=== PATIENT | male | born 1985 | race Caucasian/White ===

== ENCOUNTER 2019-10-08 09:46 | Outpatient (CLI) | payer OTHER ==
[2019-10-08 12:53] VITALS: BP 141/102
--- NOTE | 2019-10-08 12:53 | SLEEP CARE CONSULTATION ---
Information from patient questionnaire entered by Elida Staples. I have reviewed and concur with the information entered by Elida Staples. This document represents the service I personally performed and the decisions made by me, Sami Farrell MD, [facility]. History of Present Illness Reason for Visit: New patient Chief Complaint: reports: Unrefreshed sleep, Snoring, Observed pauses in breathing, Frequent awakenings at night Duration of Symptoms: 3 years Usual bedtime: 2200 Snores at night: Yes Observed to quit breathing while asleep: Yes Sleeps alone due to snoring: No Number of times waking at night: 3-4 Reasons for waking at night: reports: Snoring, Gasping for air, Bathroom Toss, Turn, or Twitch while sleeping: Yes Recalls having dreams: No Usually gets out of bed at: 0600 Feels refreshed in the morning: No Morning headache: No Sleepy or fatigued during the day: Yes Ever fallen asleep while driving: No Takes day naps: No Dreams during day naps: No Prior sleep studies: No Additional HPI information: I had the pleasure of seeing Mr. Sheth today regarding the possibility of him having a sleep disorder. As you know, he is a 34 year old gentleman who complains of loud snore, observed apneas, frequent awakenings, and excessive daytime sleepiness for at least 3 years. The patient tells me that he normally goes to bed around 10 pm, and it takes him approximately just a few minutes to fall asleep. He has been told that he snores loudly and irregularly at night. He has also been observed to stop breathing in his sleep. His can still sleep in the same bed. He can recall waking up on the average of 3 - 4 times du ring the night. Most of the time he wakes up because of his own snoring, choking, and having to gasp for air. There is a lot of tossing and turning in his sleep. No somniloquy (sleep talking) or somnambulism (sleep walking). Generally there is no recollection of dreams. In the morning he usually gets up out of the bed around 0600 a.m. not feeling refreshed nor rested. He usually does not have a morning headache. During the day he complains of feeling sleepy and fatigued. His score on [place] Sleepiness Scale is 16 out of 24. He has never fallen asleep while driving nor has had any accident due to sleepiness. He usually does not take naps during the day. Upon falling asleep during the day he denies having vivid dreams. He has had sleep paralysis, but never experienced cataplexy or symptoms of restless leg syndrome. He denies having impaired concentration during the day. Subjective Initial [place] Sleepiness Scale score: 16 Social History The patient's occupation is active . Patient is and lives in [place]. Have you smoked in the past 12 months: No Cigarettes per day (20/pack): 20 Years of smokin Quit date: 2009 Smoking Pack Years: 5.0 Alcohol use: No Caffeine use: Yes Caffeine amount and frequency: 1 cup coffee/day Allergies and Home Medications Drug allergies reviewed: Yes Home medication list reviewed: Yes Allergy and home medication list: Meds: vitamins Allergies: bee stings Review of Systems Cardiovascular: denies: high blood pressure, palpitations, chest pain, irregular heart rate or pulse, leg or foot swelling, have to sleep sitting up, other Respiratory: denies: shortness of breath, wheeze, sputum production, chronic cough, other Gastrointestinal: denies: heartburn, difficulty swallowing, nausea, vomitting, diarrhea, abdominal pain, other Urinary: denies: incontinence, frequency, urgency, impotence, other Neurological: denies: headaches, seizure, head trauma, disorientation, speech dysfunction, gait or balance problems, fainting or unconsciousness, other Psychiatric: denies: Attention Deficit Hyperactivity, anxiety, depression, mood disorder, claustrophobia, other Ear/Nose/Throat: denies: nasal congestion, sinus problems, nose bleeds, dry mouth/throat, hoarseness, injury to nose, tonsillectomy, wisdom teeth removed, other Endocrine: denies: thyroid disease, history of goiter, sluggishness, too hot or cold, excessive thirst, increased appetite, increased urination, unexplained weakness, other Musculoskeletal: denies: joint pain, neck pain, back pain, joint swelling, muscle pain or cramping, mobility problems, other Immunologic: denies: sneezing, rash, itching, allergies to food or environment, other Physical Exam Vital signs obtained and entered by: Dr. Farrell Blood Pressure: 141/102 Cuff size: regular Heart Rate: 80 O2 Saturation: 98 Height: 5 ft 10 in Weight: 205 lb Body Mass Index: 29.4 BMI Classification: Overweight Neck circumference: 17 Mood/affect: normal HEENT: No craniofacial malformation Nostrils: patent to airflow Turbinates: normal Septum: midline Mouth and throat: narrow oropharynx Soft palate: long Hard palate: normal Uvula: normal Uvula visualization: 50% Mallampati Class II Tongue: normal in size Tonsils: small Chin and jaw: normal size and position Neck: normal w/o lymphadenopathy or thyromegaly Heart: regular rate and rhythm Lungs: clear bilaterally Abdomen: soft, non-tender Extremities: no edema or clubbing Neurologic: intact, no focal deficits Impression and Plan IMPRESSION: 1. Obstructive Sleep Apnea-Hypopnea Syndrome, as suggested by history of loud and irregular snoring, observed cessation of breath while asleep, frequent awakenings during the night, unrefreshed sleep, and daytime hypersomnolence. Narrow oropharynx and obesity are common predisposing factors for obstructive sleep apnea-hypopnea syndrome. Untreated obstructive sleep apnea can also cause hypertension. Pathophysiology of sleep-disordered breathing was discussed. I recommend proceeding to polysomnography to confirm the diagnosis and to assess severity. If he has significant sleep disordered breathing, a manual CPAP titration study will also be performed to find the optimal treatment pressure. I informed the patient of what the sleep studies involve and after some discussion, he agreed to proceed. Plan: 1. Schedule polysomnography + manual CPAP titration study 2. Avoid long distance driving or when feeling sleepy. 3. Avoid alcohol, sedative and muscle relaxant around bedtime. 4. Attempt to lose weight. 5. Return in 1 to 2 weeks after the study to discuss results and initiate therapy. I spent 100% of this 20 minute visit face to face with the patient with greater than 50% of this was spent time counseling the patient and coordination of care.
== END 2019-10-08 09:47 | disposition home or self-care (01) ==
LOC: SC 09:46
PROVIDERS: ATTEND Internal Medicine Pulmonary Disease
DX: R06.83 Snoring (principal); R06.81 Apnea, not elsewhere classified; G47.8 Other sleep disorders; G47.10 Hypersomnia, unspecified
CPT/HCPCS: 99203; 99212

== ENCOUNTER 2019-10-28 19:32 | Outpatient (CLI) | payer OTHER | END 2019-10-28 19:33 | disposition home or self-care (01) | LOC: SC 19:32 | PROVIDERS: ATTEND Internal Medicine Pulmonary Disease | DX: G47.33 Obstructive sleep apnea (adult) (pediatric) (principal); E66.9 Obesity, unspecified; Z68.29 Body mass index [BMI] 29.0-29.9, adult | CPT/HCPCS: 95810 ==

== ENCOUNTER 2019-11-27 08:14 | Outpatient (CLI) | payer OTHER ==
[2019-11-27 09:05] VITALS: BP 132/82
--- NOTE | 2019-11-27 09:05 | SLEEP CARE CONSULTATION ---
Information from patient questionnaire entered by Debbie Bermudez. I have reviewed and concur with the information entered by Debbie Bermudez. This document represents the service I personally performed and the decisions made by me, Jo Salguero, RN, MSN, [employer]. History of Present Illness Initial [place] Sleepiness Scale score: 16 Current [place] Sleepiness Scale score: 15 Additional HPI information: TERESITA YOUSSEF returns for follow up and results of the recently performed polysomnography. I explained the pathophysiology behind obstructive sleep apnea. We then spent quite a bit of time discussing different treatment options. For mild obstructive sleep apnea, surgery and oral appliance are alternatives to nasal CPAP therapy but in moderate or severe cases, nasal CPAP is the most effective and reliable treatment. I reviewed the impact of weight changes on sleep apnea and strongly recommended losing weight. After some discussion, the patient opted to go with the nasal CPAP therapy. I discussed the option of initiating CPAP in a manual titration study with compounding pharmacy technician versus trying autoCPAP at home. He chose the manual titration study to find optimal treatment pressure. I explained how CPAP machine works with sample devices [employer] Dreamstation and [employer] [id number] and what to expect when using the machine. He also asked about battery options, I discussed how his PCM can order this when he is set up from the [employer]. When it is used, the humidifier must be off as it draws too much power. Patient counseled not drink alcohol less than 4 hours before bedtime as it can increase snoring and apnea. Patient does not drink alcohol. Patient was cautioned about risks of drowsy driving until sleepiness symptoms resolve. Patient denies drowsy driving. [facility] patient education on snoring and sleep apnea given and reviewed. Sleep Study - Results Polysomnography/Home Sleep Study results: The quality of the study is good. The patient had normal sleep efficiency. Except for mild sleep fragmentation, the sleep architecture was normal as well. Respiratory monitoring showed mild obstructive sleep apnea-hypopnea (AHI = 6.6) associated with frequent arousals, oxyhemoglobin desaturation and moderate hypoxia (aylin oxygen saturation of 77%). Baseline oxygen saturation was normal. The respiratory events occurred mainly during supine sleep (supine AHI = 9.5; non-supine = 5.15). Snore was loud in intensity. There was no significant periodic leg movement of sleep. Cardiac rhythm was normal sinus rhythm without significant arrhythmia. No abnormal behavior (parasomnia) observed during the night. Allergies and Home Medications Known drug allergies: No (bee stings ) Home medication list reviewed: No (none taken) Review of Systems Review of systems same as previous: Yes Physical Exam Blood Pressure: 132/82 Cuff size: long Heart Rate: 94 O2 Saturation: 98 Height: 5 ft 10 in Weight: 216 lb 6.4 oz Body Mass Index: 31.0 BMI Classification: Obesity Class 1 Impression and Plan 1. Obstructive sleep Apnea-Hypopnea Syndrome, mild, with lowest oxygen saturation of 77%. . Obviously this is the cause of the patients symptoms of unrefreshed sleep, and excessive daytime sleepiness. Positive pressure therapy could benefit his intermittent elevated blood pressure. As mentioned above, the patient will be scheduled for a manual titration study will be completed if unable to find optimal treatment pressure. Because the apnea is more severe supine, I instructed to avoid sleeping supine using pillow positioning until able to start CPAP use. * Schedule manual titration study * Attempt to lose weight. * Avoid alcohol consumption near bedtime. * Avoid supine sleep until using CPAP. * The patient is again cautioned about driving until sleepiness completely resolves. * Return one month after CPAP obtained. I will assess response to therapy and compliance at that time. Time Spent with Patient (minutes): 35 I spent 100% of this visit face to face with the patient with greater than 50% of this was spent time counseling the patient and coordination of care.
== END 2019-11-27 08:15 | disposition home or self-care (01) ==
LOC: SC 08:14
PROVIDERS: ATTEND Nurse Practitioner Family
DX: G47.33 Obstructive sleep apnea (adult) (pediatric) (principal); E66.9 Obesity, unspecified; Z68.31 Body mass index [BMI] 31.0-31.9, adult
CPT/HCPCS: 99212; 99214

== ENCOUNTER 2019-12-19 20:21 | Outpatient (CLI) | payer OTHER | END 2019-12-19 20:22 | disposition home or self-care (01) | LOC: SC 20:21 | PROVIDERS: ATTEND Internal Medicine Pulmonary Disease | DX: G47.33 Obstructive sleep apnea (adult) (pediatric) (principal) | CPT/HCPCS: 95811 ==

== ENCOUNTER 2020-06-17 16:03 | Outpatient (CLI) | payer OTHER | END 2020-06-17 16:04 | disposition home or self-care (01) | LOC: SC 16:03 | PROVIDERS: ATTEND Nurse Practitioner Family | DX: Z53.9 Procedure and treatment not carried out, unspecified reason (principal) ==

== ENCOUNTER 2020-06-18 10:15 | Outpatient (CLI) | payer OTHER ==
--- NOTE | 2020-06-18 14:27 | SLEEP CARE CONSULTATION ---
Information from patient questionnaire entered by Bao Bertrand. I have reviewed and concur with the information entered by Bao Bertrand. This document represents the service I personally performed and the decisions made by me, Shannon Torres ARNP. History of Present Illness Service Date and Time: 06/18/2020 1015 Previous diagnosis: Mild, Obstructive Sleep Apnea-Hypopnea Syndrome AHI: 6.6 Reason for follow up: first compliance Equipment type: CPAP Equipment obtained from: Other ([facility]) Mask style: Nasal Mask brand: Respironics (Dreamwear) Backup mask available: Yes (has old mask) Last cushion change: has been using original mask [facility]: [facility] Type of [facility] Study: Polysomnography HPI additional information: TERESITA YOUSSEF was diagnosed to have mild, AHI 6.6, obstructive sleep apnea- hypopnea syndrome and returned today for CPAP therapy first compliance follow- up. He feels it is helping him to sleep and breathe a lot better while he is sleeping. Sleep Study - Results Prior sleep studies: No CPAP Compliance Data - Data Reviewed with Patient Average duration of nightly device use: 7 h 7 min Compliance rate %: 96.7 Current pressure setting (cmH2O): 6-9 Average residual AHI: 2.2 Central apnea: 1.6 Obstructive apnea: 0.5 Average large leak: 6 sec Subjective Missed days of use due to: reports: other (camping trip) Patient concerns: denies: aerophagia, mask discomfort, air blowing in eyes, mask leak noise, condensation in mask/hose, nasal congestion, dry mouth, nose, throat, epistaxis, other Observed to snore while using device: No Current pressure setting perceived as: comfortable On therapy, patient: reports: sleeping better, awakening more refreshed, being more awake and alert during the day, more rested overall. denies: drowsiness while driving Initial [place] Sleepiness Scale score: 16 Current [place] Sleepiness Scale score: 7 Allergies and Home Medications Drug allergies reviewed: Yes (NKDA) Home medication list reviewed: Yes (no changes) Review of Systems Review of systems same as previous: Yes (no changes) Physical Exam Heart Rate: 76 O2 Saturation: 99 Height: 5 ft 10 in Weight: 218 lb Body Mass Index: 31.2 BMI Classification: Obese Impression and Plan 1. Obstructive Sleep Apnea-Hypopnea Syndrome, mild, with good treatment compliance and good apnea control. On CPAP therapy, there is improved sleep quality and feels more rested overall. Patient states he is very happy with the CPAP therapy and comfortable with it's use and does not see needing to come in for further appointments beyond the annual followup. Patient's apnea severity and rationale for treatment to reduce apnea, improve sleep quality and reduce cardiovascular and cerebrovascular events was reviewed. I also reviewed the benefit of consistent device use of CPAP to reduce risks of developing hypertension, cardiac disease, and cerebrovascular disease. Continue auto CPAP pressure at 6-8 cm H2O. Notify me if snoring with the mask or feeling that the pressure is too much or too little. Attempt to lose weight. Return for follow-up in one year, or sooner if concerns arise. Visit Type: In Office Time Spent with Patient (minutes): 19 Provider Statement: I spent 100% of the Face to Face Visit with the patient with greater than 50% spent counseling the patient and coordination of care.
== END 2020-06-18 10:16 | disposition home or self-care (01) ==
LOC: SC 10:15
PROVIDERS: ATTEND Nurse Practitioner Family
DX: G47.33 Obstructive sleep apnea (adult) (pediatric) (principal); E66.9 Obesity, unspecified; Z68.31 Body mass index [BMI] 31.0-31.9, adult
CPT/HCPCS: 99212; 99213

== ENCOUNTER 2021-06-17 08:02 | Outpatient (CLI) | payer OTHER ==
--- NOTE | 2021-06-17 08:32 | SLEEP CARE CONSULTATION ---
Information from patient questionnaire entered by Debbie Bermudez. I have reviewed and concur with the information entered by Debbie Bermudez. This document represents the service I personally performed and the decisions made by , Shannon Torres ARNP. History of Present Illness Service Date and Time: 06/17/2021 0802 Previous diagnosis: Mild, Obstructive Sleep Apnea-Hypopnea Syndrome AHI: 6.6 (in 2019) Reason for follow up: annual (last seen 05/2020) Equipment type: CPAP Mask style: Nasal Backup mask available: Yes (old mask) Last cushion change: 2 months Prior sleep studies: Yes Year and Where: 2019 - [facility] Sleep HPI additional information: TERESITA YOUSSEF was diagnosed to have mild, AHI 6.6, obstructive sleep apnea- hypopnea syndrome and returned today for CPAP therapy annual follow-up. 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 denies: aerophagia, mask discomfort, air blowing in eyes, mask leak noise, condensation in mask/hose, nasal congestion, dry mouth, nose, throat, epistaxis Observed to snore while using device: No Current pressure setting perceived as: comfortable On therapy, patient: reports: sleeping better, awakening more refreshed, being more awake and alert during the day, more rested overall, other (can't sleep without it). denies: drowsiness while driving Initial [place] Sleepiness Scale score: 16 (in 2019) Current [place] Sleepiness Scale score: 6 Allergies and Home Medications Home medication list reviewed: Yes (BP medication) Review of Systems Review of systems same as previous: No (Hypertension) Physical Exam Heart Rate: 72 O2 Saturation: 99 Height: 5 ft 10 in Weight: 219 lb Body Mass Index: 31.4 BMI Classification: Obese Impression and Plan 1. Obstructive Sleep Apnea-Hypopnea Syndrome, mild, with excellent treatment compliance and good apnea control. On CPAP therapy, the patient has better sleep quality and is more rested overall. 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 He states he will not have something to plug his CPAP machine into or very much room and would like to be able to get a battery operated portable device. His DreamStation APAP is also on recall and he was encouraged to go on their website and register his claim. Patient denies any black particles seen in machine or hoses, any unusual odors coming from device. Patient has not experienced any physical symptoms such as upper airway irritation, headache, skin or eye irritation, asthma, nausea/vomiting, difficulty breathing or chest pain. Patient informed that they may use an inline CPAP filter that they can obtain online to reduce chance of any particles being inhaled or ingested. We discussed thoroughly the health risks of not using the CPAP versus continuing use with the filter in place. If patient is not able to sleep due to waking up choking, gasping for air or other respiratory distress that they may decide to continue using it until it is either replaced or repaired. I will write a prescription for a portable device but he will have to take it to his [employer] officials to get authorization for the device. A copy will be sent with him. Patient is otherwise very satisfied with his therapy and current pressure setting is comfortable. Patient encouraged to try to maintain a healthy weight and to lose weight if needed. Patient voiced understanding and agreement with plan. Patient's apnea severity and rationale for treatment to reduce apnea, improve sleep quality and reduce cardiovascular and cerebrovascular events was reviewed. I also reviewed the benefit of consistent device use of CPAP for hypertension, cardiac disease, and cerebrovascular disea se. * Continue auto CPAP pressure at 6-9 cmH2O * Portable CPAP prescription * Notify me if snoring with mask or feeling that the pressure is too much or too little * Attempt to lose weight * Call this office if any problems using CPAP * Return for follow up in 1 year, or sooner if concerns arise Counseling Topics: Spare mask, Weight loss health impact Visit Type: In Office Time Spent with Patient (minutes): 22 Provider Statement: I spent 100% of the Face to Face Visit with the patient with greater than 50% spent counseling the patient and coordination of care.
== END 2021-06-17 08:03 | disposition home or self-care (01) ==
LOC: SC 08:02
PROVIDERS: ATTEND Nurse Practitioner Family
DX: G47.33 Obstructive sleep apnea (adult) (pediatric) (principal); E66.9 Obesity, unspecified; Z68.31 Body mass index [BMI] 31.0-31.9, adult
CPT/HCPCS: 99212; 99213